=== PATIENT | male | born 1975 | race Caucasian/White ===

== ENCOUNTER 2017-12-27 00:35 | Observation (INO) ==
[2017-12-27] MEDS ORDERED: Naloxone 0.4 MG/ML INJ IVP PRN (02:29)
[2017-12-27] MEDS ORDERED: Ipratropium/Albuterol Neb 3 ML IH PRN (02:30)
[2017-12-27] MEDS: Acetaminophen 325 MG TABLET PO PRN ×2 (04:07→14:14)
--- NOTE | 2017-12-27 04:13 | Internal Med History&Physical ---
Date of Encounter: 12/27/17 Time of Encounter: 03:45 Assessment and Plan (1) Asthma Current visit: Yes Status: Acute Patient presented to ER with shortness of breath and had wheezing. Responded to bronchodilators. Symptoms have improved. We will continue bronchodilators. Qualifiers: Asthma severity: moderate Asthma persistence: persistent Asthma complication type: with acute exacerbation Qualified Code(s): J45.41 - Moderate persistent asthma with (acute) exacerbation (2) Shortness of breath Current visit: Yes Status: Acute Could be related to asthma. Patient presenting with sudden onset shortness of breath. 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 We will get CT angiogram of the chest to rule out PE. (3) Left bundle branch block Current visit: Yes Status: Acute Possibly new left bundle branch block. No prior EKG to compare. 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 Will get 2-D echocardiogram. Also ordered stress test tentatively. (4) Essential hypertension Current visit: Yes Status: Chronic Well controlled (5) Morbid obesity Current visit: Yes Status: Chronic Internal Medicine - H&P: HPI Chief complaint: Shortness of breath Admitted From: Emergency Dept Plans for Post Hospital Care: Home History of present illness: Mr. Pineda is a 42 year old male patient with history of essential hypertension, asthma, hyperlipidemia who came to the ER with complaints of sudden onset shortness of breath last evening while he was getting ready for bed. He describes the feeling as " air went out of my lungs". He has never had this kind of symptoms before. He was evaluated in the ER and was given bronchodilators with some improvement in his symptoms. While in the ER he had a fleeting episode of chest pain that lasted for a few seconds over his central chest. It was nonradiating. Patient is a hand trucker and he came back home yesterday after a trip to [place]. No prior history of DVT or blood clots. He states that he has a history of a congenital anomaly with an artery and was told that he should never have a heart catheterization done through his right upper extremity. Past Med Surg Social Fam HX - Past Medical History Attestation: Yes The following information was validated with the patient. Source: patient Medical history: asthma, hyperlipidemia, hypertension Psychiatric history: no psych history - Past Surgical History Surgical History: appendectomy - Social History Smoking Status: Never smoker Smokeless Tobacco Status: No Alcohol use: rarely, occasionally Drug use: none - Family History Mother Age: 71 Living Status: Still Living Hx Family Cardiac Disorders: Yes (heart disease) Hx Family Respiratory Disorders: Yes (copd asthma) Internal Medicine - H&P: Meds Lisinopril [Zestril] 20 mg PO DAILY 12/27/17 [History] [place]-3 Fatty Acids [Fish Oil] 300 mg PO DAILY 12/27/17 [History] Simvastatin [Zocor] 20 mg PO HS 12/27/17 [History] 3 Allergy/AdvReac Type Severity Reaction Status Date / Time Penicillins [PCN] Allergy Hives Verified 12/26/17 22:55 All Systems PM: A 10-system review of systems was performed and is negative for pertinent findings except as documented above in the HPI. - Constitutional Constitutional: no chills, no fever(s), no night sweats - EENT Eyes: no change in vision, no discharge, no pain, no photophobia Ears: no ear discharge, no ear pain, no tinnitus Nose, mouth and throat: no dysphagia, no nasal discharge, no neck pain, no sore throat - Cardiovascular Cardiovascular ROS IM: dyspnea, no chest pain, no diaphoresis, no lightheadedness, no palpitations, no syncope - Respiratory Respiratory: wheezing, no cough, no dyspnea, no excessive phlegm production - Gastrointestinal Gastrointestinal: no abdominal pain, no diarrhea, no hematemesis, no hematochezia, no melena, no nausea, no vomiting - Musculoskeletal Musculoskeletal ROS IM: no numbness, no tingling - Integumentary Integumentary IM: no rash, no unusual bruising - Neurological Neurological ROS: no confusion, no convulsions, no focal weakness, no numbness, no tingling, no tremor(s) - Hematologic/Lymphatic Hematologic/Lymphatic: no easy bruising - Constitutional Vitals: Temp Pulse Resp BP Pulse Ox 98.3 F 92 18 121/81 94 12/27/17 02:22 12/27/17 02:22 12/27/17 02:22 12/27/17 02:22 12/27/17 02:22 General appearance: Present: cooperative, A&O X 3, morbidly obese, no acute distress, answers questions appropriately - Neck Neck exam general surgery: Present: supple, trachea midline. Absent: lymphadenopathy - Respiratory Respiratory exam: Present: CTAB. Absent: accessory muscle use, rales, rhonchi, wheezes - Cardiovascular Cardiovascular exam: Present: RRR, +S1, +S2. Absent: diastolic murmur, gallop, rubs, systolic murmur - GI/Abdominal GI/Abdominal exam: Present: normal bowel sounds, soft, no peritoneal signs. Absent: distended, tenderness - Extremities Exam Extremities exam: Present: warm, radial pulses palpable and symmetrical. Absent : calf tenderness, cyanotic, pedal edema - Neurological Exam Neurological exam: Present: alert, CN II-XII intact, oriented X3, no focal deficits. Absent: facial droop, speech deficit - Skin Skin exam: Present: dry, intact Internal Med - H&P Results - Labs Labs: WBC 11.5, hemoglobin 15.5, platelets 261, sodium 136, potassium 3.9, bicarbonate 25, BUN 13, creatinine 1.09, troponin less than 0.03 - EKG Data -: EKG Interpreted by Myself EKG shows normal: sinus rhythm - EKG Data EKG comments: 12/27/17 04:14 Left bundle branch block
[2017-12-27 04:44] LABS: Basophils % 0.2 %; Eosinophils % 0.2 %; Hematocrit 46.5 % (37.5-50.1); Hemoglobin 15.6 g/dL (12.9-16.9); Immature Granulocytes % 0.8 % (0-4); Lymphocytes # 0.8 K/mcL (0.6-4.6); Lymphocytes % 7.4 %; Mean Corpuscular HGB Conc 33.5 g/dL (31.6-35.5); Mean Corpuscular Hemoglobin 29.9 pg (28.0-33.3); Mean Corpuscular Volume 89.3 fL (83.0-100.0); Mean Platelet Volume 10.2 fL (9.4-12.4); Monocytes # 0.1 K/mcL (0.0-1.3); Monocytes % 1.3 %; Neutrophils # 9.2 K/mcL (1.6-8.9); Platelet Count 294 K/mcL (140-400); Red Blood Count 5.21 M/mcL (4.19-5.50); Red Cell Distribution Width 12.4 % (11.5-14.5); Segmented Neutrophils % 90.1 %
[2017-12-27 05:03] LABS: Troponin I 0.05 ng/mL (< 0.04)
[2017-12-27 05:18] LABS: BUN/Creatinine Ratio 12 (6-26); Blood Urea Nitrogen 13 mg/dL (6-20); Calcium 9.3 mg/dL (8.6-10.3); Carbon Dioxide 17 mEq/L (23-29); Chloride 103 mEq/L (98-107); Chol/HDL Ratio 4.7 (0-4.9); Cholesterol 199 mg/dL (< 200); Glucose 127 mg/dL (70-105); HDL Cholesterol 42 mg/dL (40-59); LDL Cholesterol,Calculated 142 mg/dL (0-99); Osmolality,Calculated 282 (280-300); Potassium 4.8 mEq/L (3.5-5.1); Sodium 135 mEq/L (136-145); Triglycerides 77 mg/dL (< 150); eGFR For African Americans > 60 (> 60); eGFR For Non-African Americans > 60 (> 60)
[2017-12-27] MEDS ORDERED: *HR* Heparin 5,000 UNIT/ML VIAL SQ SCH (07:00)
[2017-12-27] MEDS: Beclomethasone 80mcg MDI IH SCH ×2 (07:28→20:05)
[2017-12-27] MEDS: Ipratropium/Albuterol Neb 3 ML IH SCH ×5 (07:28→23:47)
--- NOTE | 2017-12-27 09:48 | Cardiology Consult Note ---
Date of Encounter: 12/27/17 Time of Encounter: 09:45 Assessment and Plan (1) Shortness of breath Current Visit: Yes Status: Acute Possibly related to asthma exacerbation. (2) Troponin level elevated Current Visit: Yes Status: Acute Borderline troponin in setting of respiratory failure. Would cycle troponins and check echo. Records of possible congenital heart disease have been requested. Discussion w patient/family: The assessment and plan as outlined above was discussed with the patient and/or family members who expressed understanding and agreement. All questions were answered. Thank you for involving us in the care of your patient. Please call with any questions. History of Present Illness Consult date: 12/27/17 Requesting physician: Arleen Whitaker Consult reason: SOB, CP Chief complaint: SOB History of present illness: Mr. Pineda is a 42 year old male with possible history of congenital heart disease and asthma who presents with an episode of difficulty catching his breath. He denies chest pain. Past Med Surg Social Fam HX - Past Medical History Medical history: asthma, hyperlipidemia, hypertension Psychiatric history: no psych history - Past Surgical History Surgical History: appendectomy - Social History Smoking Status: Never smoker Smokeless Tobacco Status: No Alcohol use: rarely, occasionally Drug use: none - Family History Mother Age: 71 Living Status: Still Living Hx Family Cardiac Disorders: Yes (heart disease) Hx Family Respiratory Disorders: Yes (copd asthma) Medications and Allergies Lisinopril [Zestril] 20 mg PO DAILY 12/27/17 [History] [place]-3 Fatty Acids [Fish Oil] 300 mg PO DAILY 12/27/17 [History] Simvastatin [Zocor] 20 mg PO HS 12/27/17 [History] 3 Allergy/AdvReac Type Severity Reaction Status Date / Time Penicillins [PCN] Allergy Hives Verified 12/26/17 22:55 All Systems Review: The remainder of the systems were reviewed and are negative Physical Examination Vital Signs, Last 4 Hours Temp Pulse Resp BP Pulse Ox 12/27/17 07:45 97.7 F 94 18 137/86 94 12/27/17 07:31 16 93 General: Conversant, No Apparent Distress HEENT: Atraumatic, Normocephaly, Mucus Membranes Moist Neck: No JVD, Normal carotid pulses Cardiac: Reg Rate and Rhythm, Normal S1 and S2, No Murmur Lungs: Normal Breath Sounds, No Wheeze, Rales, Rhonchi Neuro: Alert and responsive, No focal deficits noted Abdomen: Soft, Non-Tender Skin: No rashes noted on visualized skin Musculoskeletal: No Chest Wall Tenderness Extremities: No Clubbing, No Cyanosis, No Edema, Normal Pulses Results 12/27/17 03:20 12/27/17 03:20 Lab Results 12/27/17 03 03:20 03:20 WBC 10.2 Hgb 15.6 Hct 46.5 Plt Count 294 Sodium 135 L Potassium 4.8 Chloride 103 Carbon Dioxide 17 L BUN 13 Creatinine 1.08 Glucose 127 H Calcium 9.3 Troponin I 0.05 H* - EKG Interpretation EKG results cardiology: left bundle branch block Consult Discharge Plan - Plan Referrals: NONE,PCP [Primary Care Provider] -
[2017-12-27] MEDS ORDERED: Perflutren Lipid Microsphere 1.3 ML in 0.9 % Sodium Chloride 8.7 ML IVP ONE (12:12)
[2017-12-27] MEDS ORDERED: Perflutren Lipid Microsphere 2 ML VIAL ONE (12:14)
[2017-12-27] MEDS: predniSONE 20 MG TABLET PO SCH (14:13)
[2017-12-27] MEDS: Lisinopril 20 MG TABLET PO SCH (14:14)
[2017-12-27] MEDS ORDERED: Melatonin 3 MG TABLET PO PRN (16:33)
[2017-12-27] MEDS ORDERED: *HR* LORazepam 0.5 MG TABLET PO ONE (16:33)
--- NOTE | 2017-12-27 17:10 | Event Note ---
Date of Encounter: 12/27/17 Time of Encounter: 15:00 (1) Asthma per hx. Presented to ER with shortness of breath and wheezing. Responded to bronchodilators. Symptoms have improved. Continue bronchodilators. (2) Shortness of breath presented with sudden onset shortness of breath. Chest CTA with patchy areas of groundglass that the lungs possibly related to atelectasis. No pulmonary embolus. Denies SOB all my exam. Suspect multifactorial with known asthma, morbid obesity and possible small airways disease. Resp PCR pending (3) Left bundle branch block Possibly new left bundle branch block. No prior EKG to compare. No known history of LBBB be per patient. TTE with EF 60%, indeterminate diastolic dysfunction, no significant valvular dysfunction and no wall motion abnormalities. Defer further cardiac testing to cardiology. Continue to monitor on telemetry. (4) Essential hypertension Well controlled (5) Morbid obesity BMI 49, weight 164 kg. Lifestyle and dietary modifications encouraged. (6) Aberrant right subclavian artery: Per patient reported history, he does have documentation from [facility] noting anomalous right subclavian artery. No mention of subclavian artery on chest CTA. Could possibly be contributing to dyspnea. Cardiology following, await further recommendations.
[2017-12-28] MEDS ORDERED: *HR* Heparin 5,000 UNIT/ML VIAL SQ SCH ×2 (02:00→04:00)
[2017-12-28] MEDS: Ipratropium/Albuterol Neb 3 ML IH SCH ×3 (03:13→11:27)
[2017-12-28] MEDS: Lisinopril 20 MG TABLET PO SCH (08:18)
[2017-12-28] MEDS: predniSONE 20 MG TABLET PO SCH (08:18)
[2017-12-28 08:37] LABS: Basophils % 0.2 %; Eosinophils # 0.1 K/mcL (0.0-0.6); Eosinophils % 0.3 %; Hematocrit 47.8 % (37.5-50.1); Immature Granulocytes % 0.6 % (0-4); Lymphocytes # 2.8 K/mcL (0.6-4.6); Lymphocytes % 15.6 %; Mean Corpuscular HGB Conc 33.5 g/dL (31.6-35.5); Mean Corpuscular Hemoglobin 30.5 pg (28.0-33.3); Mean Platelet Volume 9.9 fL (9.4-12.4); Monocytes # 1.5 K/mcL (0.0-1.3); Monocytes % 8.4 %; Neutrophils # 13.6 K/mcL (1.6-8.9); Platelet Count 333 K/mcL (140-400); Red Blood Count 5.25 M/mcL (4.19-5.50); Segmented Neutrophils % 74.9 %
[2017-12-28 09:34] LABS: BUN/Creatinine Ratio 19 (6-26); Blood Urea Nitrogen 19 mg/dL (6-20); Calcium 9.8 mg/dL (8.6-10.3); Carbon Dioxide 23 mEq/L (23-29); Chloride 102 mEq/L (98-107); Glucose 114 mg/dL (70-105); Osmolality,Calculated 285 (280-300); Potassium 4.3 mEq/L (3.5-5.1); Sodium 136 mEq/L (136-145); eGFR For African Americans > 60 (> 60); eGFR For Non-African Americans > 60 (> 60)
--- NOTE | 2017-12-28 10:04 | Cardiology Progress Note ---
Date of Encounter: 12/28/17 Time of Encounter: 10:01 Assessment and Plan (1) Troponin level elevated Current Visit: Yes Status: Acute Borderline troponin in setting of respiratory failure. Initially negative, then 0.05, then negative. Do not suspect ACS. Pt denies chest pain. Only complaint was dyspnea, with known asthma. TTE resulted--EF preserved. Records received--anomalous right subclavian artery (retro-esophageal). Cardiology signing off. Reconsult PRN. Follow-up as outpt with PCP to consider outpt stress test. (2) Left bundle branch block Current Visit: Yes Status: Acute LBBB on EKG. No prior EKG to compare, so unclear if new diagnosis. TTE EF preserved. Denies chest pain. Recommend outpt stress test. Discussion w patient/family: The assessment and plan as outlined above was discussed with the patient and/or family members who expressed understanding and agreement. All questions were answered. Thank you for involving us in the care of your patient. Please call with any questions. I will discuss all the above with Dr. Tulio Winkler and make changes as necessary. Subjective Principal diagnosis: dyspnea, elevated troponin Interval history: Pt reports dyspnea has improved. Denies chest pain. Document [facility] from [facility]. Pt had anomalous right subclavian artery (retro-esophageal) . Troponins negative, 0.05, then negative. TTE resulted--EF preserved. Objective Vital Signs, Last 4 Hours Temp Pulse Resp BP Pulse Ox 12/28/17 07:18 97.5 F L 85 16 143/92 95 12/28/17 06:25 16 Vital Signs Temp Pulse Resp BP Pulse Ox 12/28/17 07:18 97.5 F L 85 16 143/92 95 12/28/17 06:25 16 12/28/17 03:47 98.0 F 79 18 145/88 97 12/27/17 23:47 14 98 12/27/17 23:07 98.1 F 80 18 126/76 94 12/27/17 20:05 14 95 12/27/17 18:38 97.7 F 106 18 109/71 94 12/27/17 16:40 97.7 F 103 18 124/80 93 12/27/17 15:20 16 97 12/27/17 11:27 97.6 F 97 18 120/83 93 12/27/17 11:11 18 96 Intake and Output 12/27/17 12/28/17 12/28/17 22:59 07:59 15:59 Other: Weight Patient Weight 12/29/17 00:59 Weight 164.835 kg General: Conversant, No Apparent Distress HEENT: Atraumatic, Normocephaly, Mucus Membranes Moist Neck: No JVD, Normal carotid pulses Cardiac: Reg Rate and Rhythm, Normal S1 and S2, No Murmur Lungs: Normal Breath Sounds, No Wheeze, Rales, Rhonchi Neuro: Alert and responsive, No focal deficits noted Abdomen: Soft, Non-Tender Skin: No rashes noted on visualized skin Musculoskeletal: No Chest Wall Tenderness Extremities: No Clubbing, No Cyanosis, No Edema, Normal Pulses Results 12/28/17 06:21 12/28/17 06:21 Lab Results 12/27/17 12/28/17 12/28/17 09:25 06:21 06:21 WBC 18.2 H D Hgb 16.0 Hct 47.8 Plt Count 333 Sodium 136 Potassium 4.3 Chloride 102 Carbon Dioxide 23 BUN 19 Creatinine 1.00 Glucose 114 H Calcium 9.8 Troponin I < 0.03 Short CBC 12/28/17 Range/Units 06:21 WBC 18.2 H D (4.3-11.1) K/mcL Hgb 16.0 (12.9-16.9) g/dL Hct 47.8 (37.5-50.1) % Plt Count 333 (140-400) K/mcL Neutrophils # 13.6 H (1.6-8.9) K/mcL BMP 12/28/17 Range/Units 06:21 Sodium 136 (136-145) mEq/L Potassium 4.3 (3.5-5.1) mEq/L Chloride 102 (98-107) mEq/L Carbon Dioxide 23 (23-29) mEq/L BUN 19 (6-20) mg/dL Creatinine 1.00 (0.70-1.30) mg/dL Glucose 114 H (70-105) mg/dL Calcium 9.8 (8.6-10.3) mg/dL Cardiac Enzymes 12/27/17 Range/Units 09:25 Troponin I < 0.03 (< 0.04) ng/mL Impressions Echocardiogram 12/27/17 03:40 Impressions: LVEF 60%. Indeterminate diastolic function. Definity echo contrast was used. Not well visualized. No significant valvular dysfunction. Lack of TR gradient to estimate RVSP. Left Ventricular Wall Motion: Rest Echo Findings All wall segments showed normal motion. Findings: Study Quality * Technically sub-optimal due to body habitus. ECG Findings * Probably NSR, consider first degree AVB. Left Ventricle * Indeterminate diastolic function. * LVEF 60%. * Definity echo contrast was used. * Normal LV size and wall thickness. Right Ventricle * Not well visualized. Left Atrium * Normal left atrial size. Right Atrium * Normal right atrial size. Aortic Valve * Aortic valve not well visualized. * No aortic stenosis. * No aortic regurgitation. Mitral Valve * Normal mitral valve structure. * No mitral stenosis. * No mitral regurgitation. Tricuspid Valve * Tricuspid valve not well visualized. * No tricuspid regurgitation. Pulmonic Valve * Pulmonic valve not well visualized. * No pulmonic stenosis. * No pulmonic regurgitation. Pulmonary Artery * Pulmonary artery not well visualized. Aorta * Not well visualized. Interatrial Septum * Interatrial septum not well evaluated. Pericardium * There is no pericardial effusion present. IVC * The IVC is not well evaluated. Chest CTA 12/27/17 15:17 IMPRESSION: 1. No pulmonary embolus. 2. Patchy areas of ground-glass throughout the lungs. Findings are nonspecific and may be related to atelectasis as imaging was obtained in expiratory phase. Small airways disease can have a similar appearance. D/ / 12/27/2017 16:46:08 Amy Wheeler MD / [email or web address] Interpreting Provider: Amy Wheeler MD Head CT 12/27/17 15:17 IMPRESSION: No acute intracranial abnormality. D/ / Isacc Reynolds MD / Isacc Reynolds MD Interpreting Provider: Isacc Reynolds MD Active Medications Acetaminophen (Tylenol) 650 mg PO Q6HR PRN PRN Reason: Fever/ headache/ mild pain Stop: 06/28/18 03:40 Last Admin: 12/27/17 14:14 Dose: 650 mg Albuterol/Ipratropium (Duoneb) 3 ml IH [id number] PRN; Protocol PRN Reason: Shortness Of Breath/Wheezing Stop: 06/28/18 02:31 Albuterol/Ipratropium (Duoneb) 3 ml IH [id number] KALLI PRN Reason: Protocol Stop: 06/28/18 08:01 Last Admin: 12/28/17 06:47 Dose: 3 ml Beclomethasone Dipropionate (Qvar 80 Mcg) 2 puff IH BIDR KALLI PRN Reason: Protocol Stop: 06/28/18 10:01 Last Admin: 12/27/17 20:05 Dose: 2 puff Heparin Sodium (Porcine) (Heparin) 5,000 unit SQ Q12HCO KALLI Stop: 06/29/18 04:01 Last Admin: 12/28/17 05:58 Dose: 5,000 unit Lisinopril (Zestril) 20 mg PO DAILY KALLI PRN Reason: Protocol Stop: 06/28/18 09:01 Last Admin: 12/28/17 08:18 Dose: 20 mg Melatonin (Melatonin) 3 mg PO HS PRN PRN Reason: Sleep Stop: 06/28/18 21:01 Last Admin: 12/27/17 19:58 Dose: 3 mg Naloxone HCl (Narcan) 0.4 mg IVP Q2MIN PRN PRN Reason: SEE COMMENTS Stop: 06/28/18 02:30 Prednisone (Prednisone) 40 mg PO DAILY [facility] Stop: 06/28/18 09:01 Last Admin: 12/28/17 08:18 Dose: 40 mg Simvastatin (Zocor) 20 mg PO HS KALLI PRN Reason: Protocol Stop: 06/28/18 21:01 Last Admin: 12/27/17 19:58 Dose: 20 mg - Imaging and Cardiology Echo: report reviewed - EKG Interpretation EKG results cardiology: other (12 hr tele AVG HR 88, SR) Consult Discharge Plan - Plan Referrals: NONE,PCP [Primary Care Provider] -
[2017-12-28 11:21] LABS: Estimated Average Glucose 117 mg/dl; Hemoglobin A1C 5.7 %
[2017-12-28] MEDS: Beclomethasone 80mcg MDI IH SCH (11:27)
[2017-12-28 11:40] VITALS: BP 111/75
--- NOTE | 2017-12-28 15:00 | Discharge Summary ---
- NOTES TO OUTPATIENT PROVIDER Notes to Outpatient Provider: Recommend outpatient cardiac stress testing Date of Encounter: 12/28/17 Time of Encounter: 15:00 - Discharge Diagnosis (1) Asthma Priority: Primary Status: Acute Comments: per hx. Presented to ER with shortness of breath and wheezing. Responded to bronchodilators. Symptoms significantly improved with bronchodilators and steroids. Cont steroid andrey, home inhalers at discahrge. Of note patient reports increased [place] home inhalers does not currently follow with pulmonology however says he is making an appointment this week with pulmonology/ asthma specialist. Qualifiers: Asthma severity: moderate Asthma persistence: persistent Asthma complication type: with acute exacerbation Qualified Code(s): J45.41 - Moderate persistent asthma with (acute) exacerbation (2) Left bundle branch block Priority: Primary Status: Acute Comments: LBBB on EKG. No prior EKG to compare. TTE EF preserved. Serial troponin negative. Denied chest pain. Evaluated by Cardiology who recommend outpt stress test. (3) Troponin level elevated Priority: Primary Status: Acute Comments: troponin peaked at 0.05 and normalized. TTE with preserved EF, no wall motion abnormalities. Evaluated by cardiology who did not suspect true ACS, likely secondary to asthma exacerbation. Denied chest pain. Follow-up as outpt with PCP to consider outpt stress test. (4) Essential hypertension Priority: Primary Status: Chronic Comments: per hx. BP controlled. Cont home BP medication (5) Morbid obesity Priority: Primary Status: Chronic Comments: BMI 49, wt 164kg. lifestyle and dietary modifications recommended (6) Aberrant right subclavian artery Priority: Secondary Status: Acute Comments: Per patient reported history, he does have documentation from [facility] noting anomalous right subclavian artery. No mention of subclavian artery on chest CTA. No further workup indicated at this time. Follow up with cardiology outpatient. Hospital course: Mr. Pineda is a 42 year old male with past medical history asthma, hypertension and morbid obesity who presented to [facility] on 12/27/2017 with complaints of sudden onset shortness of breath and generalized weakness. He is placed in observation status for further workup and treatment. He was found to have suspected asthma exacerbation which is likely the cause of his shortness of breath. He was also found to have new left bundle branch block on EKG and slightly elevated troponin. He was evaluated by cardiology who suspected troponin elevation secondary to asthma exacerbation. He underwent a chest CTA which was negative for pulmonary embolism or other acute anomalies. Symptoms resolved with bronchodilators and steroids. He was discharged home in stable condition with outpatient follow-up. Please see assessment and plan for further details. - Time Spent with Patient Total time spent providing and/or coordinating discharge services: - Discharge Medications Prescriptions: predniSONE [PredniSONE] 40 mg PO DAILY #6 tablet Home Medications: Albuterol Sulfate [Ventolin Hfa] 2 puff IH Q4H PRN 12/27/17 [History] Lisinopril [Zestril] 40 mg PO DAILY 12/27/17 [History] [place]-3 Fatty Acids [Fish Oil] 300 mg PO DAILY 12/27/17 [History] Simvastatin [Zocor] 40 mg PO DAILY 12/27/17 [History] predniSONE [PredniSONE] 40 mg PO DAILY #6 tablet 12/28/17 [Rx] Allergies/Adverse Reactions: 3 Allergy/AdvReac Type Severity Reaction Status Date / Time Penicillins [PCN] Allergy Hives Verified 12/27/17 10:38 Date of admission: 12/27/17 02:10 Primary care physician: PCP NONE Consults: 12/27/17 05:16 Consult to Cardiology [CONS] Routine Comment: Consulting Provider: Cardiology Izabella Reason for Consult: Mild trop elevation; new LBBB Call Completed: No Discharging clinician: Arleen Whitaker Anticipated date of discharge: 12/28/17 - Constitutional Vitals: Temp Pulse Resp BP Pulse Ox 97.9 F 97 15 111/75 92 12/28/17 11:39 12/28/17 11:39 12/28/17 11:39 12/28/17 11:39 12/28/17 11:39 General appearance: Present: cooperative, A&O X 3, morbidly obese, no acute distress, answers questions appropriately - Head Head exam: Present: atraumatic, normocephalic - Eye Eye exam: Present: PERRL, conjuntiva pink, sclera anicteric Pupils: Present: PERRL - Neck Neck exam general surgery: Present: supple, trachea midline. Absent: lymphadenopathy - Respiratory Respiratory exam: Present: CTAB. Absent: accessory muscle use, rales, rhonchi, wheezes - Cardiovascular Cardiovascular exam: Present: RRR, +S1, +S2. Absent: diastolic murmur, gallop, rubs, systolic murmur - GI/Abdominal GI/Abdominal exam: Present: normal bowel sounds, soft, no peritoneal signs. Absent: distended, tenderness - Extremities Exam Extremities exam: Present: warm, radial pulses palpable and symmetrical. Absent : calf tenderness, cyanotic, pedal edema - Neurological Exam Neurological exam: Present: CN II-XII intact, oriented X3, no focal deficits. Absent: pronater drift, facial droop, speech deficit - Skin Skin exam: Present: dry, intact - Patient Status Disposition: Home, Self-Care Condition: Good Functional capacity at discharge: independent ambulation Overall status at discharge: patient is back to baseline - Discharge Instructions Instructions: Prednisone (By mouth), Asthma (DC), Sleep Apnea Syndrome (DC), Weight Management (DC) Follow Up With: NONE,PCP [Primary Care Provider] - (Please call your primary care physician within 1-2 weeks for follow-up appointment.) Additional Instructions: Please follow through with your plan to stab his care with nurse first assist. Your asthma appears to be uncontrolled and he would benefit from nurse first assist evaluation. - Diet and Activity Activity: increase activity as tolerated Diet: low fat, low cholesterol
== END 2017-12-28 15:18 | disposition home or self-care (01) ==
LOC: 3BNU
PROVIDERS: ADMIT Internal Medicine; ATTEND Registered Nurse

== ENCOUNTER 2021-01-07 02:36 | Observation (INO) ==
[2021-01-07] MEDS ORDERED: *HR* LORazepam 1 MG TABLET PO ONE (02:49)
[2021-01-07 03:02] LABS: Basophils # 0.1 K/mcL (0.0-0.2); Basophils % 0.6 %; Eosinophils # 0.3 K/mcL (0.0-0.6); Eosinophils % 2.1 %; Hematocrit 45.9 % (37.5-50.1); Hemoglobin 15.5 g/dL (12.9-16.9); Immature Granulocytes % 0.5 % (0-4); Lymphocytes # 7.6 K/mcL (0.6-4.6); Lymphocytes % 46.4 %; Mean Corpuscular HGB Conc 33.8 g/dL (31.6-35.5); Mean Corpuscular Hemoglobin 31.1 pg (28.0-33.3); Mean Corpuscular Volume 92.2 fL (83.0-100.0); Mean Platelet Volume 9.2 fL (9.4-12.4); Monocytes # 1.6 K/mcL (0.0-1.3); Monocytes % 9.9 %; Neutrophils # 6.6 K/mcL (1.6-8.9); Platelet Count 304 K/mcL (140-400); Red Blood Count 4.98 M/mcL (4.19-5.50); Red Cell Distribution Width 12.8 % (11.5-14.5); Segmented Neutrophils % 40.5 %; White Blood Count 16.3 K/mcL (4.3-11.1)
[2021-01-07] MEDS: Aspirin Enteric Coated 325 MG Tablet PO SCH ×2 (03:04→08:37)
[2021-01-07 03:26] LABS: BUN/Creatinine Ratio 19 (6-26); Blood Urea Nitrogen 23 mg/dL (6-20); Calcium 9.2 mg/dL (8.6-10.3); Carbon Dioxide 20 mEq/L (23-29); Chloride 104 mEq/L (98-107); Glucose 148 mg/dL (70-105); Osmolality,Calculated 290 (280-300); Potassium 3.5 mEq/L (3.5-5.1); Sodium 137 mEq/L (136-145); Troponin I < 0.03 ng/mL (< 0.04); eGFR For African Americans > 60 (> 60); eGFR For Non-African Americans > 60 (> 60)
[2021-01-07] MEDS ORDERED: Naloxone 0.4 MG/ML INJ IVP PRN (05:19)
[2021-01-07] MEDS ORDERED: Perflutren Lipid Microsphere 1.3 ML in 0.9 % Sodium Chloride 8.7 ML IVP PRN (05:28)
[2021-01-07] MEDS: *HR* Heparin 5,000 UNIT/ML VIAL SQ SCH ×2 (06:17→14:34)
[2021-01-07 06:20] LABS: Cholesterol 193 mg/dL (< 200); HDL Cholesterol 32 mg/dL (40-59); Magnesium 1.8 mg/dL (1.6-2.6); Phosphorous 2.9 mg/dL (2.7-4.5); Triglycerides 420 mg/dL (< 150)
[2021-01-07] MEDS: hydrOXYzine pamoate 25 MG CAPSULE PO PRN ×2 (06:20→20:27)
[2021-01-07 06:22] LABS: INR 0.9; Prothrombin Time 10.9 Seconds (9.4-12.1)
[2021-01-07 06:25] LABS: Activated Partial Thrombo Time 30.7 Seconds (26.0-36.0)
[2021-01-07] MEDS ORDERED: Isovue-370 500 ML BOTTLE IVP ONE (10:14)
[2021-01-07 10:23] LABS: Estimated Average Glucose 105 mg/dl; Hemoglobin A1C 5.3 %
[2021-01-07] MEDS: Fenofibrate 54 MG TABLET PO SCH (16:52)
[2021-01-07] MEDS: Metoprolol XL (24 HR) Succ 50 MG TAB.ER.24H PO SCH (20:19)
[2021-01-08] MEDS: *HR* Enoxaparin 40 MG/0.4 ML SYRINGE SQ SCH (00:41)
[2021-01-08 03:41] LABS: Basophils # 0.1 K/mcL (0.0-0.2); Basophils % 0.6 %; Eosinophils # 0.3 K/mcL (0.0-0.6); Eosinophils % 2.8 %; Hematocrit 46.8 % (37.5-50.1); Hemoglobin 15.7 g/dL (12.9-16.9); Immature Granulocytes % 0.6 % (0-4); Lymphocytes # 3.2 K/mcL (0.6-4.6); Lymphocytes % 33.4 %; Mean Corpuscular HGB Conc 33.5 g/dL (31.6-35.5); Mean Corpuscular Hemoglobin 31.3 pg (28.0-33.3); Mean Corpuscular Volume 93.2 fL (83.0-100.0); Mean Platelet Volume 9.1 fL (9.4-12.4); Monocytes # 1.1 K/mcL (0.0-1.3); Platelet Count 261 K/mcL (140-400); Red Blood Count 5.02 M/mcL (4.19-5.50); Red Cell Distribution Width 12.9 % (11.5-14.5); Segmented Neutrophils % 51.6 %; White Blood Count 9.6 K/mcL (4.3-11.1)
[2021-01-08 04:01] LABS: BUN/Creatinine Ratio 15 (6-26); Blood Urea Nitrogen 15 mg/dL (6-20); Calcium 9.2 mg/dL (8.6-10.3); Carbon Dioxide 25 mEq/L (23-29); Chloride 102 mEq/L (98-107); Glucose 95 mg/dL (70-105); Osmolality,Calculated 283 (280-300); Potassium 4.2 mEq/L (3.5-5.1); Sodium 136 mEq/L (136-145); eGFR For African Americans > 60 (> 60); eGFR For Non-African Americans > 60 (> 60)
[2021-01-08] MEDS: Metoprolol XL (24 HR) Succ 50 MG TAB.ER.24H PO SCH ×3 (07:56→21:32)
[2021-01-08] MEDS: Fenofibrate 54 MG TABLET PO SCH ×2 (07:56→11:23)
[2021-01-08] MEDS: lisinopriL 20 MG TABLET PO SCH ×2 (07:56→11:22)
[2021-01-08] MEDS: Aspirin Enteric Coated 81 MG Tablet PO SCH ×2 (07:56→11:21)
[2021-01-08] MEDS ORDERED: Regadenoson 0.4 MG/5 ML SYRINGE IVP ONE (08:10)
[2021-01-08] MEDS ORDERED: Acetaminophen 325 MG TABLET PO PRN (15:56)
[2021-01-08] MEDS ORDERED: *HR* LORazepam 1 MG TABLET PO ONE (15:57)
[2021-01-08 16:04] LABS: Hyaline Casts,Urine Few per lpf (None Seen); Mucus,Urine Few per lpf (None-Few); RBC,Urine 0-3 per hpf (0-3); Squamous Epithelial Cell,Urine Few per hpf (None-Few); WBC,Urine 0-3 per hpf (0-3)
[2021-01-08 17:14] LABS: Bilirubin,Urine Negative (Negative); Blood,Urine Negative (Negative); Clarity,Urine Clear (Clear); Color,Urine Light-Yellow (Yellow); Glucose,Urine (UA) Normal (Normal); Ketones,Urine Negative (Negative); Leukocyte Esterase,Urine Negative (Negative); Nitrite,Urine Negative (Negative); PH,Urine 6.5 pH Units (5.0-8.0); Protein,Urine Trace mg/dL (Neg-Trace); Specific Gravity,Urine 1.025 (1.010-1.025); Urobilinogen,Urine Normal (Normal)
[2021-01-09] MEDS: *HR* Enoxaparin 40 MG/0.4 ML SYRINGE SQ SCH (05:14)
[2021-01-09] MEDS: Fenofibrate 54 MG TABLET PO SCH (09:32)
[2021-01-09] MEDS: Aspirin Enteric Coated 81 MG Tablet PO SCH (09:32)
[2021-01-09] MEDS: Metoprolol XL (24 HR) Succ 50 MG TAB.ER.24H PO SCH (09:32)
[2021-01-09] MEDS: lisinopriL 20 MG TABLET PO SCH (09:33)
[2021-01-09 11:07] VITALS: BP 119/77
[2021-01-09] MEDS ORDERED: Isosorbide MONOnitrate (24 HR) 30 MG TAB.ER.24H PO SCH (14:00)
== END 2021-01-09 15:25 | disposition home or self-care (01) ==
LOC: EMEROOARM 02:36 → 3BNU 02:36 → SUATTDRO 04:55 → 3BNU 05:38
PROVIDERS: ADMIT Internal Medicine; ATTEND Registered Nurse